=== PATIENT | male | born 2000 | race African-American/Black ===

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

== ENCOUNTER 2023-07-29 09:50 | Emergency (ER) | payer MEDICAID, OTHER ==
[~2023-07-29] VITALS: Ht 180.3 cm; Wt 113.0 kg
[2023-07-29 09:55] VITALS: O2SAT 99
[2023-07-29] MEDS: ACETAMINOPHEN 325MG TABLET PO ONE (11:30)
[2023-07-29 14:04] VITALS: BP 153/84; PULSE 89; RESP 18; TEMP 98.2
== END 2023-07-29 14:30 | disposition home or self-care (01) ==
LOC: ER 09:50
DX: R51.9 Headache, unspecified (principal)
CPT/HCPCS: 70450; 99284; Z7610